=== PATIENT | female | born 1950 | race Caucasian/White ===

== ENCOUNTER 2021-11-16 07:54 | Day surgery (SDC) | payer BC, MEDICARE ==
[2021-11-12 13:44] VITALS: BMI 26.6
[~2021-11-16 07:54] MED LIST: LACTATED RINGERS 1,000 ML IV SCH; LIDOCAINE 1% (10MG/ML) FOR IV START INTRADERMA PRN
[2021-11-16 08:26] VITALS: TEMP 96.2
[2021-11-16] MEDS ORDERED: PROPOFOL 10 MG/ML 20 ML VIAL IV ONE (08:55)
--- NOTE | 2021-11-16 09:06 | P.GSHP ---
History of Present Illness H&P Date: 11/16/21 Chief Complaint: Colon cancer screening, history of polyps 70-year-old female here today for her second colonoscopy. Last colonoscopy 6 years ago. Patient had a small tubular adenoma at that time. No bowel complaints currently. Past Medical History Past Medical History: Hyperlipidemia, Hypertension, Thyroid Disorder Additional Past Medical History / Comment(s): Migraines. Chronic cough for yrs. History of Any Multi-Drug Resistant Organisms: None Reported Past Surgical History: Adenoidectomy, Hysterectomy, Tonsillectomy Past Anesthesia/Blood Transfusion Reactions: No Reported Reaction Past Psychological History: No Psychological Hx Reported Smoking Status: Never smoker Past Alcohol Use History: None Reported Past Drug Use History: None Reported - Past Family History Mother Family Medical History: Cancer Medications and Allergies Home Medications Medication Instructions Recorded Confirmed Type Calcium Carbonate [Calcium] 600 mg PO DAILY 08/25/15 11/16/21 History Cholecalciferol [Vitamin D3] 1,000 unit PO DAILY 08/25/15 11/16/21 History Cyanocobalamin [Vitamin B-12] 500 mcg PO DAILY 08/25/15 11/16/21 History Levothyroxine Sodium [Synthroid] 50 mcg PO QAM 08/25/15 11/16/21 History [place]-3 Fatty Acids [[place]-3] 1,000 mg PO DAILY 08/25/15 11/16/21 History Raloxifene [Evista] 60 mg PO HS 08/25/15 11/16/21 History Atorvastatin [Lipitor] 10 mg PO DAILY 11/12/21 11/16/21 History Labetalol [Trandate] 200 mg PO BID 11/12/21 11/16/21 History Lysine 500 mg PO DAILY 11/12/21 11/16/21 History Montelukast [Singulair] 10 mg PO HS 11/12/21 11/16/21 History Multivit-Min/Folic Acid/Biotin 133.3 mcg PO DAILY 11/12/21 11/16/21 History [Hair, Skin and Nails Softgel] Multivitamins, Thera [Multivitamin 1 tab PO DAILY 11/12/21 11/16/21 History (formulary)] Olmesartan [Benicar] 40 mg PO QAM 11/12/21 11/16/21 History Oregano Oil 1 tab PO DAILY 11/12/21 11/16/21 History Allergies Allergy/AdvReac Type Severity Reaction Status Date / Time No Known Allergies Allergy Verified 11/16/21 08:19 Surgical - Exam Vital Signs Temp Pulse Resp BP Pulse Ox 96.2 F L 71 16 212/91 97 11/16/21 08:24 11/16/21 08:24 11/16/21 08:24 11/16/21 08:24 11/16/21 08:24 Physical exam: General: Well-developed, well-nourished HEENT: Normocephalic, sclerae nonicteric Abdomen: Nontender, nondistended Extremities: No edema Neuro: Alert and oriented Assessment and Plan (1) Colon cancer screening Narrative/Plan: Proceed with colonoscopy at this time. Current Visit: No Status: Acute Code(s): Z12.11 - ENCOUNTER FOR SCREENING FOR MALIGNANT NEOPLASM OF COLON SNOMED Code(s): 682498489
--- NOTE | 2021-11-16 09:20 | P.PCN ---
Date of Procedure: 11/16/21 Procedure(s) Performed: PREOPERATIVE DIAGNOSIS: Colon cancer screening, history of adenoma POSTOPERATIVE DIAGNOSIS: Normal exam PROCEDURE: Colonoscopy ANESTHESIA: MAC SURGEON: Pedro Frankel M.D. SPECIMENS: None ENDOSCOPIC PROCEDURE: The patient was placed on the endoscopy table in the left decubitus position. The Olympus colonoscope was inserted into the anus and passed under direct visualization to the base of the cecum. The appendiceal orifice was visualized. From that point the scope was slowly withdrawn inspecting all surfaces carefully. There were no neoplastic inflammatory or polypoid lesions throughout the cecum, ascending, transverse, descending, sigmoid and rectum. There was no visible diverticulosis noted. Digital rectal examination was normal. The patient was taken to the recovery room in stable condition per anesthesia guidelines. RECOMMENDATIONS: Resume diet. Follow-up colonoscopy 5-7 years.
[2021-11-16 09:37] VITALS: BP 167/83; PULSE 57; RESP 16
== END 2021-11-16 09:58 | disposition home or self-care (01) ==
LOC: ORWHC2ENDO 07:54
PROVIDERS: ATTEND Surgery
DX: Z12.11 Encounter for screening for malignant neoplasm of colon (principal); Z86.010 Personal history of colon polyps; E78.5 Hyperlipidemia, unspecified; I10 Essential (primary) hypertension; E07.9 Disorder of thyroid, unspecified; R05.3 Chronic cough; Z90.710 Acquired absence of both cervix and uterus; Z98.890 Other specified postprocedural states; Z80.9 Family history of malignant neoplasm, unspecified; Z79.890 Hormone replacement therapy; Z79.899 Other long term (current) drug therapy
CPT/HCPCS: J2704; G0105; 45378

== ENCOUNTER → 2024-09-17 | Outpatient (CLI) | payer MEDICARE | END | disposition home or self-care (01) | LOC: LABWHC1 13:18 | PROVIDERS: ATTEND Nurse Practitioner Family | DX: J30.89 Other allergic rhinitis (principal) | CPT/HCPCS: 36415 ==